=== PATIENT | male | born 1960 | race Caucasian/White ===

== ENCOUNTER 2020-04-15 15:56 | Observation (INO) | payer SELFPAY ==
[~2020-04-15] VITALS: Ht 177.8 cm; Wt 99.4 kg
[~2020-04-15 15:56] MED LIST: ACYCLOVIR800 MG PO; LISINOP/HCTZ1 TA1 PO; NORCO1 TAB PO; TOBRAMYCIN0.3 % OD
--- NOTE | 2020-04-15 16:10 | NUR ---
PT TO ROOM WITH A STEADY GAIT.
[2020-04-15] MEDS ORDERED: NORCO1 TA1 PO (16:34)
[2020-04-15 16:55] LABS: HEMATOCRIT 45.3 % (39.0-50.0); HEMOGLOBIN 15.3 g/dl (14.0-18.0); IMMATURE GRANULOCYTES 0.9 % (0.0-5.0); MEAN CELL VOLUME 89.5 fL CALC (80.0-100.0); MEAN CORPUSCULAR HGB 30.2 pG CALC (26.0-32.0); MEAN CORPUSCULAR HGB CONC 33.8 g/dL CAL (32.0-36.0); NEUT# 8.46 thou/uL (1.82-7.42); RED BLOOD COUNT 5.06 mill/uL (4.70-6.10); RED CELL DISTRI WIDTH 13.7 % (11.5-15.5)
--- NOTE | 2020-04-15 16:55 | NUR ---
PT MEDICATED WITH 0.1 MG CLONIDINE, PO FOR CONTINUED BP.
[2020-04-15 17:08] LABS: ANION GAP 12 (6-22 (CALC)); BUN 14 mg/dL (9-20); BUN/CREATININE RATIO 15 (12-20 (CALC)); CARBON DIOXIDE 25 mmol/l (22-30); CHLORIDE 103 mmol/l (95-108); CREATININE 0.9 mg/dL (0.7-1.3); GFR > 60 ML/MIN (>=60 (CALC)); GFR FOR AFR.AMER. > 60 ML/MIN (>=60 (CALC)); POTASSIUM 3.9 mmol/l (3.5-5.1); SODIUM 136 mmol/l (137-146)
--- NOTE | 2020-04-15 17:40 | NUR ---
UPDATED PT ON WAIT TIME AND MED REGIME. PO MEDS GIVEN FOR BP. PT RATES FRONTAL HEADACHE 05/16. DENIES VISUAL DISTURBANCE. UPDATED EDP ON PAIN
--- NOTE | 2020-04-15 18:35 | NUR ---
[facility] TILE FLOOR LAYER NOTIFIED OF CONTINUED HIGH BLOOD PRESSURE/ HOLDING OFF ON IV HTN MED UNTIL NOW
--- NOTE | 2020-04-15 18:56 | NUR ---
PT REPORT TO RADHA MAGDALENO.
--- NOTE | 2020-04-15 20:02 | NUR ---
PT MEDICATED. FEELING BETTER. VSS. REPORT TO CRICKET.
--- NOTE | 2020-04-15 20:08 | NUR ---
TO FLOOR VIA W/C. AMBULATORY TO BED. GLASSES/PHONE SHIRT TO FLOOR WITH PT.
--- NOTE | 2020-04-15 20:15 | NUR ---
PT. ARRIVED TO THE FLOOR VIA W/C ACCOMPANIED BY ER NURSE. CARCASS SPLITTER IN AT BEDSIDE. ORIENTED PT. TO CALL LIGHT AND ROOM. PT. SET UP FOR SHOWER.
[2020-04-15 20:21] VITALS: BP 154/87
--- NOTE | 2020-04-15 21:11 | NUR ---
ASSESSMENT COMPLETED.EDUCATED ON POC AND VERBALIZES UNDERSTANDING. PT. REPORTS ITS BEEN ABOUT 8 MONTHS SINCE HE HAS TAKEN HTN MEDS HE HAS NOT HAD INSURANCE WHEN HE STARTED A NEW JOB. HE DOES REPORT THAT HE IS GOING TO [facility] DEPT. HE HEARD THAT THEY CAN HELP HIM TO GET B/P MEDS THERE. PT. REPORTS IBARRA AND HIGH B/P STARTED ON TUESDAY. REPORTS IBARRA AND LEFT LOWER BACK PAIN / AT THIS TIME AND MEDICATED WITH ORDERED PRN LORTAB AND SNACK PROVIDED, WILL REASSESS.
[2020-04-15 23:49] VITALS: BP 153/86
--- NOTE | 2020-04-15 23:58 | NUR ---
RESTING IN BED WITH EYES CLOSED; NO DISTRESS NOTED; CALL LIGHT IS IN REACH.
[2020-04-16 04:08] VITALS: BP 176/89
--- NOTE | 2020-04-16 04:10 | NUR ---
VSS. NO DISTRESS NOTED; DENIES NEEDS/PAIN. ENCOURAGED TO CALL FOR ANY NEEDS.
[2020-04-16 05:32] LABS: HEMATOCRIT 46.5 % (39.0-50.0); HEMOGLOBIN 15.8 g/dl (14.0-18.0); IMMATURE GRANULOCYTES 0.7 % (0.0-5.0); MEAN CELL VOLUME 89.4 fL CALC (80.0-100.0); MEAN CORPUSCULAR HGB 30.4 pG CALC (26.0-32.0); NEUT# 9.15 thou/uL (1.82-7.42); RED BLOOD COUNT 5.2 mill/uL (4.70-6.10); RED CELL DISTRI WIDTH 13.5 % (11.5-15.5)
[2020-04-16 05:46] LABS: ANION GAP 12 (6-22 (CALC)); BUN 14 mg/dL (9-20); BUN/CREATININE RATIO 16 (12-20 (CALC)); CARBON DIOXIDE 24 mmol/l (22-30); CHLORIDE 104 mmol/l (95-108); CREATININE 0.8 mg/dL (0.7-1.3); GFR > 60 ML/MIN (>=60 (CALC)); GFR FOR AFR.AMER. > 60 ML/MIN (>=60 (CALC)); SODIUM 136 mmol/l (137-146)
--- NOTE | 2020-04-16 07:33 | NUR ---
RECIEVED REPORT FROM RADHA ARAUJO. PT RESTING IN SEMI FOWLERS POSITION UPON ENTERING ROOM. INTRODUCED SELF TO PT AND DISCUSSED POC. RESPIRATIONS ARE EVEN AND UNLABORED. PT DENIES ANY PAIN OR DISCOMFORTS AT THIS TIME. ALL SAFTEY PRECAUTIONS IN PLACE WITH CALL LIGHT IN REACH.
[2020-04-16 08:13] VITALS: BP 183/104
--- NOTE | 2020-04-16 08:26 | NUR ---
ASSESSMENT AND VITALS COMPLETED AT THIS TIME. BP 183/104. HR 86, O2 97% ON ROOM AIR. RESPIRATIONS ARE EVEN AND UNLABORED AT THIS TIME. LUNG SOUNDS ARE CLEAR. HEART RHYTHM IS NORMAL, TELE IN PLACE. BOWEL SOUNDS ARE ACTIVE IN ALL QUADRANTS. RADIAL AND PEDAL PULSES ARE STRONG WITH NORMAL CAPILLARY REFILL. NO EDEMA IN ANY EXTREMITIES. IV FLUSHED, SITE APPEARS HEALTHY AND PATENT.MORNING MEDS ADMINISTERED WITH NO DIFFICULTY. PT REPORTS SLIGHT HEADACHE, REFUSED TYLENOL.PT DENIES ANY OTHER PAIN OR DISCOMFORTS AT THIS TIME . ALL SAFTEY PRECAUTIONS IN PLACE WITH CALL LIGHT IN REACH. WILL CONTINUE TO MONITOR.
[2020-04-16 09:36] VITALS: BP 174/93
--- NOTE | 2020-04-16 09:37 | NUR ---
REASSESSMENT OF BP AT THIS TIME. BP 174/93, HR 86. RESPIATIONS ARE EVEN AND UNLABORED AT THIS TIME.PT DENIES ANY PAIN OR DISCOMFORTS AT THIS TIME. ALL SAFETY PRECAUTIONS REMAIN IN PLACE WITH CALL LIGHT IN REACH. WILL CONTIUE TO MONITOR.
--- NOTE | 2020-04-16 10:05 | NUR ---
PT REPORTS NAUSEA AT THIS TIME. REQUESTED ZOFRAN, PT REFUSED STATING "I HAVE VOMITIED YET BUT I WILL TAKE A GATORADE". CALLED DOWN TO DIETARY FOR RESTOCK OF GATORADE. INFORMED PT GATORADE WAS UNAVAILABLE AT THIS TIME AND OFFERED GINGERAL. PT REFUSED GINGERAL. REQUESTED MED TO ASSIST WITH NAUSEA ONCE MORE, PT REFUSED AT THIS TIME. RESPIRATIONS ARE EVEN AND UNLABORED AT THIS TIME.PT DENIES ANY PPAIN OR OTHER DISCOMFORTS AT THIS TIME. ALL SAFTEY PRECAUTIONS REMAIN IN PLACE. WILL CONTIUE TO MONITOR
[2020-04-16 10:45] VITALS: BP 187/93
[2020-04-16 11:20] VITALS: BP 175/101
--- NOTE | 2020-04-16 11:28 | NUR ---
BP RE-CHECK 175/101 HR 92. CARLOSANREBECA NOTIFIED AND NEW ORDERS TO BE RECEIVED.WILL CONTINUE TO MONITOR
--- NOTE | 2020-04-16 12:20 | NUR ---
DR PEACOCK AND CARLOS ANREBECA AT BEDSIDE
[2020-04-16 12:46] VITALS: BP 146/86
--- NOTE | 2020-04-16 12:48 | NUR ---
REASSESSMENT OF BP AFTER ADMINISTRATION OF CATAPRESS. BP 146/86, HR 96. RESPIRATIONS ARE EVEN AND UNLABORED AT THIS TIME.PT REPORTS SLIGHT NAUSEA, PT STILL REFUSES ANY MEDS TO ASSIST WITH NAUSEA. PT DENIES ANY PAIN OR OTHER DISCOMFORTS . ALL SAFTEY PRECAUTIONS REMAIN IN PLACE WITH CALL LIGHT IN REACH. WILL CONTIUE TO MONITOR,
[2020-04-16] MEDS ORDERED: LISINOPRIL20 M1 PO (14:32)
[2020-04-16] MEDS ORDERED: AMLODIPINE BESYL5 MG PO (14:32)
[2020-04-16] MEDS ORDERED: ZOFRAN4 MG/TAB PO (15:22)
--- NOTE | 2020-04-16 15:47 | NUR ---
IV REMOEVED AT THIS TIME WITH CATHATER STILL INTACT. PT TOLERATED WELL. PT REQUESTED ZOFRAN, ZOFRAN ADMINISTERED AT THIS TIME. TELE REMOVED AT THIS TIME. PT REQUESTED TO SHOWER BEFORE BEING DISCHARGED. RESPIRTAIONS ARE EVEN AND UNLABORED AT THIS TIME. PT DENIES ANY PAIN OR DISCOMFORTS AT THIS TIME. ALL SAFTEY PRECAUTIONS IN PLACE WITH CALL LIGHT IN REACH. WILL CONTINUE TO MONITOR
--- NOTE | 2020-04-16 16:10 | NUR ---
PT EDUCATED ON DISCHARGE INSTRUCTIONS AND NEW MEDS. PT VERBALIZED UNDERSTANDING. AWAITNG FOR TRANSPORTATION AT THIS TIME. PT DENIES ANY PAIN OR DISCOMFORTS. ALL SAFTEY PRECAUTIONS IN PLACE. WILL CONTINUE TO MONITOR
--- NOTE | 2020-04-16 16:20 | NUR ---
Discharge instructions given. Patient verbalizes understanding of same. Discharged in stable condition via Wheelchair to Home with family. All belongings sent with pt. PT LEFT FLOOR IN STABLE CONDITIONS VIA WHEELCHAIR ACCOMPAINED BY BETH MCNEILL LPN. PT DEPARTED WITH ALL BELONGINGS AND DISCHARGE INSTRUCTIONS
== END 2020-04-16 16:12 | disposition home or self-care (01) | DRG 305 ==
LOC: ED 15:56 → ED-I 18:43 → ED 19:08 → ED-I 19:09 → MS2 19:09
PROVIDERS: Family Medicine; ADMIT Internal Medicine; ATTEND Internal Medicine
DX: I16.0 Hypertensive urgency (principal); I10 Essential (primary) hypertension; F17.210 Nicotine dependence, cigarettes, uncomplicated; T46.5X6A Underdosing of other antihypertensive drugs, initial encounter; Z91.128 Patient's intentional underdosing of medication regimen for other reason; Z11.59 Encounter for screening for other viral diseases
CPT/HCPCS: G0378; J1650